=== PATIENT | male | born 1970 | race Two or more races ===

== ENCOUNTER 2018-08-18 17:50 | Emergency (ER) | payer OTHER ==
[~2018-08-18] VITALS: Ht 177.8 cm; Wt 88.5 kg
[2018-08-18] MEDS ORDERED: CLOTRIMAZOLE/BE15 GM TOP (20:55)
== END 2018-08-18 21:03 ==
LOC: ER 17:50
DX: B35.8 Other dermatophytoses (principal)

== ENCOUNTER 2019-03-21 16:02 | Emergency (ER) | payer OTHER ==
[~2019-03-21] VITALS: Ht 177.8 cm; Wt 89.8 kg
[~2019-03-21 16:02] MED LIST: CLOTRIMAZOLE/BE15 GM TOP
[2019-03-21] MEDS ORDERED: PROTONIX40 M1 PO (17:42)
== END 2019-03-21 21:44 | disposition home or self-care (01) ==
LOC: ER
DX: R10.32 Left lower quadrant pain (principal)

== ENCOUNTER 2019-05-16 10:05 | Emergency (ER) | payer OTHER ==
[~2019-05-16] VITALS: Ht 175.3 cm; Wt 90.7 kg
[~2019-05-16 10:05] MED LIST changes: +PROTONIX40 M1 PO
[2019-05-16] MEDS ORDERED: PROTONIX40 MG (10:20)
== END 2019-05-16 11:53 | disposition home or self-care (01) ==
LOC: ER 10:05
DX: M79.18 Myalgia, other site (principal); R07.89 Other chest pain; R06.02 Shortness of breath

== ENCOUNTER 2019-07-03 08:36 | Outpatient (CLI) | payer OTHER ==
[~2019-07-03] VITALS: Ht 175.3 cm; Wt 88.5 kg
[~2019-07-03 08:36] MED LIST changes: +PROTONIX40 MG
[2019-07-03] MEDS ORDERED: PEPCID AC20 MG PO (11:36)
[2019-07-03] MEDS ORDERED: NEILMED SINUS1 EACH NASAL (11:36)
[2019-07-03] MEDS ORDERED: PROTONIX40 MG PO (11:36)
== END 2019-07-03 12:53 | disposition home or self-care (01) ==
LOC: OFIC 805 08:36
PROVIDERS: ATTEND Otolaryngology
DX: K21.0 Gastro-esophageal reflux disease with esophagitis (principal); R13.19 Other dysphagia; J34.89 Other specified disorders of nose and nasal sinuses; R09.81 Nasal congestion

== ENCOUNTER → 2019-07-14 12:40 | Outpatient (CLI) | payer OTHER ==
[~2019-07-14 12:40] MED LIST changes: +NEILMED SINUS1 EACH NASAL; +PEPCID AC20 MG PO; +PROTONIX40 MG PO
== END | disposition home or self-care (01) ==
LOC: LAB 12:40
PROVIDERS: ATTEND Otolaryngology
DX: J34.89 Other specified disorders of nose and nasal sinuses (principal); R13.10 Dysphagia, unspecified

== ENCOUNTER 2019-07-15 08:02 | Outpatient (CLI) | payer OTHER | END 2019-07-15 08:44 | disposition home or self-care (01) | LOC: TOM 08:02 | PROVIDERS: ATTEND Otolaryngology | DX: J34.89 Other specified disorders of nose and nasal sinuses (principal); R13.19 Other dysphagia ==

== ENCOUNTER 2019-07-21 10:14 | Outpatient (CLI) | payer OTHER ==
[~2019-07-21] VITALS: Ht 152.4 cm; Wt 88.5 kg
== END 2019-07-21 14:50 | disposition home or self-care (01) ==
LOC: OFIC 805 10:14
PROVIDERS: ATTEND Otolaryngology
DX: R09.81 Nasal congestion (principal); K21.0 Gastro-esophageal reflux disease with esophagitis; R51 Headache

== ENCOUNTER 2020-11-18 07:41 | Outpatient (CLI) | payer OTHER | END 2020-11-18 08:00 | disposition home or self-care (01) | LOC: SONOGRAMA 07:41 → MAMO-SONO 11-25 08:45 | PROVIDERS: ATTEND Internal Medicine | DX: R10.84 Generalized abdominal pain (principal); K21.9 Gastro-esophageal reflux disease without esophagitis; K30 Functional dyspepsia; R10.11 Right upper quadrant pain ==